=== PATIENT | female | born 1965 | race Caucasian/White ===

== ENCOUNTER 2018-06-27 05:20 | Inpatient (IN) | payer OTHER ==
[2018-06-27] MEDS ORDERED: Acetaminophen 500 MG Tab PO ONE (05:30)
[2018-06-27] MEDS ORDERED: Gabapentin 300 MG Cap PO ONE (05:40)
[2018-06-27] MEDS ORDERED: Celecoxib 200 MG Cap PO ONE (05:40)
[2018-06-27] MEDS ORDERED: Scopolamine 1.5 MG Transdermal Patch TOP SCH (05:40)
[2018-06-27] MEDS ORDERED: Dextrose 5%-Lactated Ringers 1,000 ML IV SCH (05:59)
[2018-06-27] MEDS ORDERED: Meropenem 500 MG SDV ONE (06:33)
[2018-06-27] MEDS ORDERED: cefOXitin 2 GM in Sodium Chloride 0.9% 50 ML IV ONE (07:00)
[2018-06-27] MEDS ORDERED: Ondansetron 4 MG/2 ML SDV ONE (07:05)
[2018-06-27] MEDS ORDERED: Neostigmine Methylsulfate 1 MG/ML 5 ML Syringe ONE (07:05)
[2018-06-27] MEDS ORDERED: Glycopyrrolate 0.2 MG/ML 5 ML MDV ONE (07:05)
[2018-06-27] MEDS ORDERED: Succinylcholine 200 MG/10 ML MDV ONE (07:05)
[2018-06-27] MEDS ORDERED: Propofol 200 MG/20 ML SDV ONE (07:05)
[2018-06-27] MEDS ORDERED: Dexamethasone 4 MG/ML SDV ONE (07:05)
[2018-06-27] MEDS ORDERED: Rocuronium 50 MG/5 ML Vial ONE (07:05)
[2018-06-27] MEDS ORDERED: Naloxone 0.4 MG/ML SDV IVPUSH PRN (07:09)
[2018-06-27] MEDS ORDERED: Morphine PF 150 MG/30 ML PCA Syringe IV PRN (07:09)
[2018-06-27] MEDS ORDERED: Lidocaine 2% 100 MG/5 ML Syringe IVPUSH SCH (07:30)
[2018-06-27] MEDS ORDERED: Ketamine 50 MG in Sodium Chloride 0.9% 49.5 ML IV SCH (07:30)
[2018-06-27] MEDS ORDERED: Ropivacaine 50 ML, Dexamethasone 8 MG, EPINEPHrine 0.4 MG, Sodium Chloride 0.9% 27.6 ML NERVRT SCH ×4 (07:30)
[2018-06-27] MEDS ORDERED: Ketamine 500 MG/5 ML MDV IV SCH (07:30)
[2018-06-27] MEDS: Lidocaine 0.4%/D5W 2 GM/500 ML BAG IV SCH (09:50)
[2018-06-27] MEDS ORDERED: Labetalol 20 MG/4 ML Syringe IVPUSH PRN (10:32)
[2018-06-27] MEDS ORDERED: Metoclopramide 10 MG/2 ML SDV IVPUSH PRN (10:32)
[2018-06-27] MEDS ORDERED: hydrOXYzine HCl 100 MG/2 ML SDV IM PRN (10:32)
[2018-06-27] MEDS ORDERED: Ondansetron 4 MG/2 ML SDV IVPUSH PRN (10:32)
[2018-06-27] MEDS ORDERED: diphenhydrAMINE 50 MG/ML SDV IVPUSH PRN (10:32)
[2018-06-27] MEDS: Sodium Ferric Gluconate Cmplex 250 MG in Sodium Chloride 0.9% 100 ML IV SCH (11:58)
[2018-06-27] MEDS: Dextrose 5%-Lactated Ringers 1,000 ML IV SCH ×2 (12:00→22:51)
[2018-06-27] MEDS: cefOXitin 2 GM in Sodium Chloride 0.9% 50 ML IV SCH ×2 (12:03→18:19)
[2018-06-27] MEDS: Pantoprazole 40 MG Vial IVPUSH SCH (12:05)
[2018-06-27] MEDS: MVI, Adult with Vitamin K 10 ML, Thiamine 100 MG, Chromium/Copper/Mang/Selen/Zn 1 ML in... IV SCH ×4 (15:23)
[2018-06-27] MEDS: Gabapentin 250 MG/5 ML Solution ML 470 ML Bottle PO SCH ×2 (15:23→20:56)
[2018-06-27] MEDS: Acetaminophen Soln 650 MG/20.3 ML UD Cup PO SCH ×2 (15:24→21:00)
[2018-06-27] MEDS: Heparin Sodium 5,000 Units/ML Vial SUBCUT SCH (18:21)
[2018-06-28] MEDS: cefOXitin 2 GM in Sodium Chloride 0.9% 50 ML IV SCH (00:11)
[2018-06-28] MEDS ORDERED: Iohexol 647 MG/ML 50 ML SDV PO STA (02:42)
[2018-06-28] MEDS: Acetaminophen Soln 650 MG/20.3 ML UD Cup PO SCH ×4 (03:28→21:31)
--- NOTE | 2018-06-28 03:53 | CRLCR ---
Indication: Kelby-en-Y revision. Technique: Abdomen 2 view. Comparison: None. Findings: Two abdominal films are submitted for review. These show skin shirin in a vertical incision pattern as well as suture material and surgical clips within the left abdomen. Oral contrast is seen initially within the distal esophagus as well as minimal residual stomach. Second image shows contrast more distally within the small bowel. Impression: Submitted images show administered oral contrast extending into the small bowel without gross extravasation. Dictated by Alexis Maynard MD @ Jun 28 2018 3:50AM Signed by Dr. Alexis Maynard @ Jun 28 2018 3:52AM
[2018-06-28] MEDS: Heparin Sodium 5,000 Units/ML Vial SUBCUT SCH ×2 (05:32→18:01)
[2018-06-28] MEDS: Dextrose 5%-Lactated Ringers 1,000 ML IV SCH (05:41)
[2018-06-28] MEDS ORDERED: Rizatriptan 10 MG Tab.DIS PO PRN (07:41)
[2018-06-28] MEDS ORDERED: LORazepam 1 MG Tab PO PRN (07:41)
[2018-06-28] MEDS ORDERED: Dextrose 5%-Lactated Ringers 1,000 ML IV SCH (07:45)
--- NOTE | 2018-06-28 08:21 | PCM.SURGPN ---
- General Info Date of Service: 06/28/18 Date of Surgery/Procedure: 06/27/18 POD#: 1 Functional Status: Reports: Pain Controlled (on Morphine ENGINEERING ASSOCIATE with scheduled Tylenol and gabapentin in addition.), Tolerating Diet (was on ice chips and sips. ), Ambulating, Incentive Spirometry (use is 10x/ hour while awake.) - Review of Systems Systems Review Comment:: Norma Askew is a 53-year-old female who is post op day 1 from an exploratory laparotomy with closure of gastric gastric fistula, revision of gastrojejunostomy, closure of gastrostomy, and gastroscopy. Patient remained afebrile with stable vital signs. The patient's pain is well controlled on Morphine ENGINEERING ASSOCIATE. The patient had satisfactory urine output through Jaffe catheter. Tolerating diet well. All questions were answered by Dr. Reyes. - Patient Data Vitals - Most Recent: Last Vital Signs Temp 37.1 C 06/28/18 07:40 Pulse 66 06/28/18 07:40 Resp 15 06/28/18 07:40 BP 145/84 H 06/28/18 07:40 Pulse Ox 98 06/28/18 07:40 Weight - Most Recent: 100.607 kg I&O - Last 24 Hours: Intake & Output 06/27/18 06/28/18 06/28/18 22:59 06:59 14:59 Intake Total 2646 1969 500 Output Total 2550 1400 Balance 96 569 500 Med Orders - Current: Current Medications Acetaminophen (Tylenol) 650 mg PO Q6H [facility] Last Admin: 06/28/18 03:28 Dose: 650 mg Cyanocobalamin (Vitamin B12) 1,000 mcg IM ONETIME ONE Stop: 06/29/18 09:01 Diphenhydramine HCl (Benadryl) 50 mg IVPUSH Q4H PRN PRN Reason: ITCHING Fluoxetine HCl (Prozac) 60 mg PO DAILY [facility] Gabapentin (Neurontin) 300 mg PO TID [facility] Last Admin: 06/27/18 20:56 Dose: 300 mg Heparin Sodium (Porcine) (Heparin Sodium) 5,000 units SUBCUT Q12H [facility] Last Admin: 06/28/18 05:32 Dose: 5,000 units Hydroxyzine HCl (Vistaril) 100 mg IM Q4H PRN PRN Reason: pain Lidocaine HCl/Dextrose (Lidocaine 2 Gm/D5w 500 Ml) 2 gm in 500 mls @ 15 mls/hr IV .Q24H [facility] Stop: 06/28/18 14:00 Last Admin: 06/27/18 09:50 Dose: 1 mg/min, 15 mls/hr Multivitamins/Minerals 10 ml/Thiamine HCl 100 mg/ Chromium/Copper/Manganese/ Seleni/Zn 1 ml/ Dextrose/Lactated Ringer's 1,012 mls @ 150 mls/hr IV DAILY@ 1600 [facility] Last Admin: 06/27/18 15:23 Dose: 150 mls/hr Ferric Sodium Gluconate Complex 250 mg/ Sodium Chloride 120 mls @ 60 mls/hr IV Q24H [facility] Stop: 06/28/18 12:59 Last Admin: 06/27/18 11:58 Dose: 60 mls/hr Dextrose/Lactated Ringer's (Dextrose 5%-Lactated Ringers) 1,000 mls @ 80 mls/ hr IV ASDIRECTED THANH Labetalol HCl (Normodyne) 5 mg IVPUSH Q5M PRN PRN Reason: SBP over 160 OR DBP over 95 Lorazepam (Ativan) 1 mg PO DAILY PRN PRN Reason: Pain (mild 1-3) Metoclopramide HCl (Reglan) 10 mg IVPUSH Q6H PRN PRN Reason: NAUSEA NOT CONTROL BY ZOFRAN Miscellaneous Information (Remove Patch) 1 ea TRDERM ONETIME ONE Stop: 06/29/18 10:01 Morphine Sulfate (Morphine Wire Rigger 150 Mg In 30 Ml) 0 mg IV ASDIRECTED PRN; Protocol PRN Reason: Pain Last Admin: 06/27/18 09:16 Dose: 1 mg Naloxone HCl (Narcan) 0.1 mg IVPUSH Q2M PRN PRN Reason: Respiratory Distress Scopolamine Patch (Check) 1 each TOP DAILY [facility] Stop: 06/29/18 10:33 Ondansetron HCl (Zofran) 4 mg IVPUSH Q4H PRN PRN Reason: Nausea/Vomiting Last Admin: 06/27/18 11:59 Dose: 4 mg Ondansetron HCl (Zofran Odt) 4 mg PO Q4H PRN PRN Reason: Nausea/Vomiting Pantoprazole Sodium (Protonix Iv) 40 mg IVPUSH Q24H [facility] Last Admin: 06/27/18 12:05 Dose: 40 mg Rizatriptan Benzoate (Maxalt Welding Manager) 10 mg PO ASDIRECTED PRN PRN Reason: Pain Scopolamine (Transderm-Scop) 1.5 mg TOP Q72H [facility] Stop: 06/29/18 10:00 Last Admin: 06/27/18 06:07 Dose: 1.5 mg Topiramate (Topamax) 200 mg PO DAILY [facility] Discontinued Medications Acetaminophen (Tylenol Extra Strength) 1,000 mg PO ONETIME ONE Stop: 06/27/18 05:31 Last Admin: 06/27/18 06:07 Dose: 1,000 mg Celecoxib (Celebrex) 200 mg PO ONETIME ONE Stop: 06/27/18 05:41 Last Admin: 06/27/18 06:07 Dose: 200 mg Ropivacaine 50 ml/Dexamethasone 8 mg/Epinephrine HCl 0.4 mg/ Sodium Chloride 27.6 ml 0 ml NERVRT ASDIRECTED [facility] Last Admin: 06/27/18 08:07 Dose: 80 syringe Dexamethasone (Dexamethasone) Confirm Administered Dose 4 mg .ROUTE .STK-MED ONE Stop: 06/27/18 07:06 Fentanyl Citrate (Fentanyl) Confirm Administered Dose 500 mcg .ROUTE .STK-MED ONE Stop: 06/27/18 07:13 Gabapentin (Neurontin) 300 mg PO ONETIME ONE Stop: 06/27/18 05:41 Last Admin: 06/27/18 06:07 Dose: 300 mg Glycopyrrolate (Robinul) Confirm Administered Dose 1 mg .ROUTE .STK-MED ONE Stop: 06/27/18 07:06 Cefoxitin Sodium 2 gm/ Sodium (Chloride) 50 mls @ 100 mls/hr IV ONETIME ONE Stop: 06/27/18 07:29 Last Admin: 06/27/18 07:12 Dose: 100 mls/hr Dextrose/Lactated Ringer's (Dextrose 5%-Lactated Ringers) 1,000 mls @ 100 mls/ hr IV ASDIRECTED [facility] Last Admin: 06/27/18 06:09 Dose: 100 mls/hr Ketamine HCl 50 mg/ Sodium (Chloride) 50 mls @ 19.8 mls/hr IV ASDIRECTED [facility] Dextrose/Lactated Ringer's (Dextrose 5%-Lactated Ringers) 1,000 mls @ 150 mls/ hr IV ASDIRECTED [facility] Last Admin: 06/28/18 05:41 Dose: 150 mls/hr Cefoxitin Sodium 2 gm/ Sodium (Chloride) 50 mls @ 100 mls/hr IV Q6H [facility] Stop: 06/28/18 00:59 Last Admin: 06/28/18 00:11 Dose: 100 mls/hr Iohexol (Omnipaque-300) 50 ml PO .ASDIRECTED [facility] Stop: 06/28/18 02:43 Last Admin: 06/28/18 02:54 Dose: 50 ml Ketamine HCl (Ketalar) 33 mg IV ASDIRECTED [facility] Lidocaine HCl (Xylocaine 2%) 115 mg IVPUSH ASDIRECTED [facility] Meropenem (Merrem) Confirm Administered Dose 500 mg .ROUTE .STK-MED ONE Stop: 06/27/18 06:34 Last Admin: 06/27/18 08:09 Dose: 500 mg Neostigmine Methylsulfate (Neostigmine) Confirm Administered Dose 5 mg .ROUTE .STK-MED ONE Stop: 06/27/18 07:06 Ondansetron HCl (Zofran) Confirm Administered Dose 4 mg .ROUTE .STK-MED ONE Stop: 06/27/18 07:06 Propofol (Diprivan 20 Ml) Confirm Administered Dose 200 mg .ROUTE .STK-MED ONE Stop: 06/27/18 07:06 Rocuronium Howard (Zemuron) Confirm Administered Dose 50 mg .ROUTE .STK-MED ONE Stop: 06/27/18 07:06 Succinylcholine Chloride (Quelicin) Confirm Administered Dose 200 mg .ROUTE .STK -MED ONE Stop: 06/27/18 07:06 - Exam General: Alert, Oriented Neck: Supple Lungs: Clear to Auscultation, Normal Respiratory Effort Cardiovascular: Regular Rate, Regular Rhythm Extremities: No Pedal Edema Neurological: No New Focal Deficit Psy/Mental Status: Normal Affect, Normal Mood Physical Findings Comment:: Jaffe catheter output 4245 mL - Problem List Review Problem List Initiated/Reviewed/Updated: Yes - My Orders Last 24 Hours: Active Orders 24 hr Category Date Time Status Patient Status [ADT] Routine ADT 06/27/18 09:00 Active Ambulate [RC] ASDIRECTED Care 06/27/18 10:12 Active Cardiac Monitoring Discontinue [RC] Click to Edit Care 06/28/18 07:40 Active Cardiac Monitoring [RC] .As Directed Care 06/27/18 10:25 Active Communication Order [RC] ASDIRECTED Care 06/27/18 10:25 Active Dorsiflex/Plantar flex x 10 [RC] Q4HR Care 06/27/18 10:12 Active Head of Bed Elevation [RC] CONTINUOUS Care 06/27/18 10:12 Active Insert Urinary Catheter [OM.PC] Q24H Care 06/27/18 10:30 Ordered Intake and Output [RC] QSHIFT Care 06/27/18 10:12 Active May Shower [RC] ASDIRECTED Care 06/28/18 07:40 Active Notify Provider Intake and Out [RC] ASDIRECTED Care 06/27/18 10:12 Active Oxygen Therapy [RC] PRN Care 06/27/18 10:12 Active Pneumonia Education [RC] UPON Care 06/27/18 10:12 Active Pulse Oximetry [RC] CONTINUOUS Care 06/27/18 10:12 Active RT Incentive Spirometry [RC] ASDIRECTED Care 06/27/18 10:12 Active Turn, Cough, Deep Breathe [RC] Q1HWA Care 06/27/18 10:12 Active Up to Chair [RC] TIDMEALS Care 06/27/18 10:12 Active Urinary Catheter Assessment [RC] ASDIRECTED Care 06/27/18 10:12 Active Urinary Catheter Removal [RC] Per Unit Routine Care 06/28/18 07:40 Active Consult to Bariatric Services [CONS] Routine Cons 06/27/18 10:12 Active Consult to Netezza Developer [CONS] Routine Cons 06/27/18 10:12 Active Respiratory Care Assess and Treatment [CONS] Routine Cons 06/27/18 10:12 Active Respiratory Care Assess and Treatment [CONS] Routine Cons 06/27/18 10:12 Active Bariatric Diet [DIET] Diet 06/28/18 Breakfast Active Acetaminophen [Tylenol] Med 06/27/18 16:00 Active 650 mg PO Q6H Cyanocobalamin (Vitamin B12) [Vitamin B12] Med 06/29/18 09:00 Once 1,000 mcg IM ONETIME ONE Dextrose 5%-Lactated Ringers 1,000 ml Med 06/28/18 07:45 Active IV ASDIRECTED FLUoxetine [PROzac] Med 06/28/18 09:00 Active 60 mg PO DAILY Gabapentin [Neurontin] Med 06/27/18 14:00 Active 300 mg PO TID Heparin Sodium Med 06/27/18 18:00 Active 5,000 units SUBCUT Q12H LORazepam [Ativan] Med 06/28/18 07:41 Active 1 mg PO DAILY PRN Labetalol [Normodyne] Med 06/27/18 10:32 Active 5 mg IVPUSH Q5M PRN Lidocaine 0.4%/D5W [Lidocaine 2 GM/D5W 500 ML] Med 06/27/18 07:30 Active 2 gm in 500 ml IV 1 mg/min MVI, Adult with Vitamin K [Infuvite Adult] 10 ml Med 06/27/18 16:00 Active Thiamine [Vitamin B-1] 100 mg Chromium/Copper/Stanley/Selen/Zn [Multitrace-5 Concentrate ] 1 ml Dextrose 5%-Lactated Ringers 1,000 ml IV DAILY@1600 Metoclopramide [Reglan] Med 06/27/18 10:32 Active 10 mg IVPUSH Q6H PRN Non-Formulary Medication [NF Drug] Med 06/27/18 10:32 Active 1 each TOP DAILY Ondansetron [Zofran ODT] Med 06/28/18 07:40 Active 4 mg PO Q4H PRN Ondansetron [Zofran] Med 06/27/18 10:32 Active 4 mg IVPUSH Q4H PRN Pantoprazole [ProTONIX IV] Med 06/27/18 11:30 Active 40 mg IVPUSH Q24H Remove Patch Med 06/29/18 10:00 Once 1 ea TRDERM ONETIME ONE Rizatriptan [Maxalt TORTS LAW PROFESSOR] Med 06/28/18 07:41 Active 10 mg PO ASDIRECTED PRN Sodium Ferric Gluconate Cmplex [Ferrlecit IV] 250 mg Med 06/27/18 11:00 Active Sodium Chloride 0.9% [Normal Saline] 100 ml IV Q24H Topiramate [Topamax] Med 06/28/18 09:00 Active 200 mg PO DAILY diphenhydrAMINE [Benadryl] Med 06/27/18 10:32 Active 50 mg IVPUSH Q4H PRN hydrOXYzine HCl [Vistaril] Med 06/27/18 10:32 Active 100 mg IM Q4H PRN Abdominal Binder [OM.PC] Per Unit Routine Oth 06/27/18 10:12 Ordered Convert IV to Saline Lock [OM.PC] Routine Oth 06/28/18 07:40 Ordered DME for Inpatients [OM.PC] Per Unit Routine Oth 06/27/18 10:12 Ordered Oral Care [OM.PC] BID Oth 06/27/18 10:15 Ordered Oral Care [OM.PC] BID Oth 06/28/18 10:15 Ordered Oral Care [OM.PC] BID Oth 06/29/18 10:15 Ordered Oral Care [OM.PC] BID Oth 06/30/18 10:15 Ordered Oral Care [OM.PC] BID Oth 07/01/18 10:15 Ordered Oral Care [OM.PC] BID Oth 07/02/18 10:15 Ordered Oral Care [OM.PC] BID Oth 07/03/18 10:15 Ordered Oral Care [OM.PC] BID Oth 07/04/18 10:15 Ordered Oral Care [OM.PC] BID Oth 07/05/18 10:15 Ordered Oral Care [OM.PC] BID Oth 07/06/18 10:15 Ordered PT Screening [OM.PC] Routine Ot 06/27/18 10:12 Active Sequential Compression Device [OM.PC] Per Unit Routine Ot 06/27/18 10:12 Ordered Specialty Bed [OM.PC] Continuous Ot 06/27/18 10:12 Ordered Medication Orders Acetaminophen (Tylenol) 650 mg PO Q6H [facility] Last Admin: 06/28/18 03:28 Dose: 650 mg Admin: 06/27/18 21:00 Dose: 650 mg Admin: 06/27/18 15:24 Dose: 650 mg Cyanocobalamin (Vitamin B12) 1,000 mcg IM ONETIME ONE Stop: 06/29/18 09:01 Diphenhydramine HCl (Benadryl) 50 mg IVPUSH Q4H PRN PRN Reason: ITCHING Fluoxetine HCl (Prozac) 60 mg PO DAILY [facility] Gabapentin (Neurontin) 300 mg PO TID [facility] Last Admin: 06/27/18 20:56 Dose: 300 mg Admin: 06/27/18 15:23 Dose: 300 mg Heparin Sodium (Porcine) (Heparin Sodium) 5,000 units SUBCUT Q12H [facility] Last Admin: 06/28/18 05:32 Dose: 5,000 units Admin: 06/27/18 18:21 Dose: 5,000 units Hydroxyzine HCl (Vistaril) 100 mg IM Q4H PRN PRN Reason: pain Lidocaine HCl/Dextrose (Lidocaine 2 Gm/D5w 500 Ml) 2 gm in 500 mls @ 15 mls/hr IV .Q24H [facility] Stop: 06/28/18 14:00 Last Admin: 06/27/18 09:50 Dose: 1 mg/min, 15 mls/hr Multivitamins/Minerals 10 ml/Thiamine HCl 100 mg/ Chromium/Copper/Manganese/ Seleni/Zn 1 ml/ Dextrose/Lactated Ringer's 1,012 mls @ 150 mls/hr IV DAILY@ 1600 [facility] Last Admin: 06/27/18 15:23 Dose: 150 mls/hr Ferric Sodium Gluconate Complex 250 mg/ Sodium Chloride 120 mls @ 60 mls/hr IV Q24H [facility] Stop: 06/28/18 12:59 Last Admin: 06/27/18 11:58 Dose: 60 mls/hr Dextrose/Lactated Ringer's (Dextrose 5%-Lactated Ringers) 1,000 mls @ 80 mls/ hr IV ASDIRECTED [facility] Labetalol HCl (Normodyne) 5 mg IVPUSH Q5M PRN PRN Reason: SBP over 160 OR DBP over 95 Lorazepam (Ativan) 1 mg PO DAILY PRN PRN Reason: Pain (mild 1-3) Metoclopramide HCl (Reglan) 10 mg IVPUSH Q6H PRN PRN Reason: NAUSEA NOT CONTROL BY ZOFRAN Miscellaneous Information (Remove Patch) 1 ea TRDERM ONETIME ONE Stop: 06/29/18 10:01 Morphine Sulfate (Morphine Wire Rigger 150 Mg In 30 Ml) 0 mg IV ASDIRECTED PRN; Protocol PRN Reason: Pain Last Admin: 06/27/18 09:16 Dose: 1 mg Naloxone HCl (Narcan) 0.1 mg IVPUSH Q2M PRN PRN Reason: Respiratory Distress Scopolamine Patch (Check) 1 each TOP DAILY [facility] Stop: 06/29/18 10:33 Ondansetron HCl (Zofran) 4 mg IVPUSH Q4H PRN PRN Reason: Nausea/Vomiting Last Admin: 06/27/18 11:59 Dose: 4 mg Ondansetron HCl (Zofran Odt) 4 mg PO Q4H PRN PRN Reason: Nausea/Vomiting Pantoprazole Sodium (Protonix Iv) 40 mg IVPUSH Q24H [facility] Last Admin: 06/27/18 12:05 Dose: 40 mg Rizatriptan Benzoate (Maxalt Welding Manager) 10 mg PO ASDIRECTED PRN PRN Reason: Pain Scopolamine (Transderm-Scop) 1.5 mg TOP Q72H [facility] Stop: 06/29/18 10:00 Last Admin: 06/27/18 06:07 Dose: 1.5 mg Topiramate (Topamax) 200 mg PO DAILY [facility] - Assessment Assessment (Free Text/Narrative):: Pre-Op Diagnosis: G-G fistula Post-Op Diagnosis: G-G fistula Procedure: Exploratory laparotomy with closure of gastric gastric fistula, revision of gastrojejunostomy, closure of gastrostomy, and gastroscopy. Date of Procedure: 06/27/18 Surgeon: Alexis Reyes MD - Plan Plan (Free Text/Narrative):: 1. Discontinue cardiac monitoring. 2. May shower as directed. 3. Discontinue urinary catheter. 4. Transition to Step II diet. 5. Dextrose 5%-LR 1,000 mL IV as directed. 6. Fluoxetine 60 mg PO daily. 7. Lorazepam 1 mg PO daily PRN for pain. 8. Ondansetron 4 mg PO every 4 hours PRN for nausea/vomiting. 9. Rizatriptan 10 mg PO as directed PRN for pain. 10. Topiramate 200 mg PO daily. 11. Convert IV to saline lock. 12. Home medications were reconciled.
[2018-06-28] MEDS: Lidocaine 0.4%/D5W 2 GM/500 ML BAG IV SCH (08:43)
[2018-06-28] MEDS: Gabapentin 250 MG/5 ML Solution ML 470 ML Bottle PO SCH ×3 (08:55→21:31)
[2018-06-28] MEDS: SCOPOLAMINE PATCH CHECK TOP SCH (08:56)
[2018-06-28] MEDS: FLUoxetine 20 MG Cap PO SCH (08:57)
[2018-06-28] MEDS: Topiramate 100 MG Tab PO SCH (08:58)
[2018-06-28] MEDS: Pantoprazole 40 MG Vial IVPUSH SCH (10:44)
[2018-06-28] MEDS: Sodium Ferric Gluconate Cmplex 250 MG in Sodium Chloride 0.9% 100 ML IV SCH (11:04)
[2018-06-28] MEDS: MVI, Adult with Vitamin K 10 ML, Thiamine 100 MG, Chromium/Copper/Mang/Selen/Zn 1 ML in... IV SCH ×4 (15:59)
[2018-06-28] MEDS: HYDROmorphone 2 MG Tab PO PRN (20:19)
[2018-06-29] MEDS: HYDROmorphone 2 MG Tab PO PRN ×4 (00:15→21:30)
[2018-06-29] MEDS: Acetaminophen Soln 650 MG/20.3 ML UD Cup PO SCH ×4 (04:26→21:30)
[2018-06-29] MEDS: Heparin Sodium 5,000 Units/ML Vial SUBCUT SCH ×2 (06:10→17:46)
[2018-06-29] MEDS ORDERED: Magnesium Hydroxide 400 MG/5 ML Susp 30 ML Cup PO ONE (08:30)
[2018-06-29] MEDS ORDERED: Cyanocobalamin (Vitamin B12) 1,000 MCG/ML SDV IM ONE (09:00)
[2018-06-29] MEDS: Gabapentin 250 MG/5 ML Solution ML 470 ML Bottle PO SCH ×3 (09:17→21:41)
[2018-06-29] MEDS: FLUoxetine 20 MG Cap PO SCH (09:17)
[2018-06-29] MEDS: Topiramate 100 MG Tab PO SCH (09:18)
[2018-06-29] MEDS: SCOPOLAMINE PATCH CHECK TOP SCH (09:18)
[2018-06-29] MEDS ORDERED: Bisacodyl 5 MG Tab PO ONE (09:30)
--- NOTE | 2018-06-29 11:50 | PN ---
DATE OF SERVICE: 06/29/2018 SUBJECTIVE: Norma's pain is controlled. She is receiving oral Dilaudid. She has been up ambulating. Vital signs have been stable. Oral intake was 20/30 on a step-2 gastric bypass diet and urine output was 1850. Denies any associated signs or symptoms. Has not had a bowel movement yet. OBJECTIVE: GENERAL: Norma Askew is a 53-year-old female. She is alert, orientated, and talkative. VITAL SIGNS: TPR 97.1, 63, 18, and blood pressure is 133/76. HEENT: Negative. NECK: Supple. HEART: Regular rate and rhythm. LUNGS: Clear. ABDOMEN: Dressings dry and intact. She has an Aquacel dressing on. EXTREMITIES: Without peripheral edema. ASSESSMENT: Exploratory laparotomy with closure of gastric fistula, revision of gastrojejunostomy, closure of gastrostomy and gastroscopy. Date of surgery 06/27/2018. Surgeon, Alexis Reyes MD. PLAN: 1. DC Aquacel dressing. 2. Milk of magnesia 30 mL now. 3. Give Dulcolax tab 1 hour after milk of mag. 4. Continue to work on good pulmonary function. 5. We will evaluate p.r.n. or in a.m. 6. Plan to discharge in a.m. Norma Rothman PA-C /[id number]
--- NOTE | 2018-06-29 11:56 | OR ---
DATE OF PROCEDURE: 06/27/2018 PREOPERATIVE DIAGNOSIS: Gastrogastric fistula. POSTOPERATIVE DIAGNOSES: 1. Gastrogastric fistula. 2. Status post previous gastrostomy. OPERATIVE PROCEDURES: 1. Upper gastrointestinal endoscopy with placement of a wire across the gastrogastric fistula and subsequent placement of a dilator over the wire (71779). 2. Exploratory laparotomy with lysis of adhesions and: a. Takedown of gastrostomy (49128). b. Closure of a gastrogastric fistula (02056). ANESTHESIA: General. ASSISTANTS: Norma Rothman PA-C, and MICHELE Dc. INDICATIONS FOR PROCEDURE: This is a 53-year-old female presenting with quite severe ongoing upper abdominal pain and heartburn related to a gastrogastric fistula. This is likely related to a previous ulceration in that area causing a perforation between 2 portions of the stomach, and the plan was to proceed with a closure of that. We will proceed with an initial upper endoscopy with wire placement, followed by a dilator across the fistula, so as to help its identification intraoperatively. Potential risks, including bleeding, infection, and leaks from various GI tracts and staple lines, were reviewed, and the patient wished to proceed. DETAILS OF PROCEDURE: The patient was taken to the operating room and placed in a supine position. After general endotracheal anesthesia was induced, the upper GI endoscope was passed orally through the length of the esophagus and into the proximal stomach. The fistula site could be identified at that point, and the guidewire was passed from there into the remainder of the stomach. The gastroscope was then withdrawn, leaving the wire in place, and a 30-Rwandan Savary dilator was then positioned over the wire to help identify the fistula site intraoperatively. A Jaffe catheter was inserted and the abdomen prepped and draped. An upper midline incision was made and carried down through the full-thickness abdominal wall. Upon entering the peritoneal cavity, the patient was noted to have a previous gastrostomy present. This was taken down by means of cautery dissection and then stapled. At that point, dissection in the area of the proximal stomach was accomplished, and the area of fistula could be identified. There was some chronic inflammation and scarring in this area. Once the fistula was then encircled, the portion of the stomach between the 2 parts was excised in the process of closing off the fistula, to provide some distance between the 2 sites and to prevent recurrent fistula formation. That portion of the stomach and a tiny bit of adjacent small bowel were then delivered from the field. At this point, no further problems were noted. The area was reinforced with some fibrin sealant and omentum, and a single Jeffy-Huang drain was then placed through a stab wound in the left subcostal area and positioned adjacent to the closure site. The midline fascia was then approximated with a #2 Vicryl stitch and the subcutaneous tissue with 2 layers of 3- 0 and 4-0 Vicryl stitches deep and shirin for the skin. The patient was taken to the recovery room in satisfactory condition. Of note, the wire and dilator had been removed prior to stapling across the area of the fistula. Physician practice assistant, Norma Rothman, played an essential role in assisting in this case, helping to position the patient and retract structures as needed, as well as suturing and stapling when indicated. Her presence improved the patient's safety and decreased the operative time. Alexis Reyes MD /[id number]
[2018-06-29] MEDS: Ondansetron 4 MG Tab.DIS PO PRN ×2 (11:57→16:10)
[2018-06-29] MEDS: Pantoprazole 40 MG Delayed-Release Granules 1 Packet PO SCH (13:46)
[2018-06-30] MEDS: HYDROmorphone 2 MG Tab PO PRN ×3 (02:54→11:51)
[2018-06-30] MEDS: Acetaminophen Soln 650 MG/20.3 ML UD Cup PO SCH ×2 (03:01→09:25)
[2018-06-30] MEDS: Heparin Sodium 5,000 Units/ML Vial SUBCUT SCH (05:53)
[2018-06-30] MEDS: FLUoxetine 20 MG Cap PO SCH (09:24)
[2018-06-30] MEDS: Topiramate 100 MG Tab PO SCH (09:25)
[2018-06-30] MEDS: Gabapentin 250 MG/5 ML Solution ML 470 ML Bottle PO SCH (09:27)
--- NOTE | 2018-06-30 10:44 | DISCH ---
ADMISSION DIAGNOSES: 1. 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 2. Unspecified surgical malabsorption. 3. B12 deficiency. 4. Low ferritin. 5. Anxiety state. 6. Bipolar 1 disorder. 7. Episodic mood disorder. 8. Migraine headaches. 9. Psychophysiological insomnia. DISCHARGE DIAGNOSES: 1. Upper gastrointestinal endoscopy with placement of a wire across the gastrogastric fistula and subsequent placement of a dilator over the wire. 2. Exploratory laparotomy with lysis of adhesion and: a. Takedown of gastrostomy. b. Closure of gastrogastric fistula. 3. Gastrogastric fistula status post previous gastrostomy. Date of surgery, 06/27/2018. Surgeon, Alexis Reyes MD. 4. Low ferritin. HISTORY: Norma Askew is a 53-year-old female presenting with severe ongoing upper abdominal pain and heartburn related to a gastrogastric fistula. After preoperative evaluation and discussion of possible risks and possible complications, she wished to proceed with surgical procedure. HOSPITAL COURSE: Norma had her surgery on 06/27/2018. She had no operative complications. On postoperative day #1, her upper GI was normal. She was started on a step-2 with no cereal gastric bypass diet. She received ferrous gluconate 250 mg IV x2 doses, one on postoperative day and the other one on postoperative day #1. On postop day #1, she was changed to oral pain medication and she was up ambulating. She did have a fall and has bruising in her right foot. No other injury. On postoperative day #2, she was given bowel stimulation. Also, she started having bowel movements. Oral intake was adequate. Pain controlled. Activity good. She received adequate dietary instruction and she was able to be discharged to home on 06/30/2018. PHYSICAL EXAMINATION: GENERAL: Norma is a 53-year-old female. VITAL SIGNS: Height is 5 feet 8.9 inches. Weight is 221 pounds. TPR is 97.1, 59, 16, blood pressure 121/72. HEENT: Negative. NECK: Supple. HEART: Regular rate and rhythm. LUNGS: Clear. ABDOMEN: Stapled incision looks good. Minimal tenderness is noted in abdomen. Abdominal binder has been on. EXTREMITIES: Without peripheral edema. She has some slight bruising in her right foot. Very minimal swelling and abrasion on the top of her foot, superficial. NEUROLOGIC: Intact. PSYCHIATRIC: Mood and affect appropriate. DISPOSITION: Discharge to home. CONDITION: Stable and improving. FOLLOWUP APPOINTMENT: Norma Rothman PA-C, on 07/04/2018 at 11:30 a.m., appointment to be at [place], [place]. HOME MEDICATIONS: 1. Dilaudid 2 mg oral q.6 hours p.r.n. pain, #28. 2. Tylenol 650 mg oral q.6 hours. She can either take the liquid or the chewable. 3. Zofran ODT 4 mg every 6 hours p.r.n. nausea. To resume home medications of: 1. Ativan 1 mg oral daily. 2. Omeprazole 20 mg oral daily. 3. Maxalt 10 mg oral as directed p.r.n. headache. 4. Carafate 1 g oral 4 times a day. 5. Topiramate 200 mg oral daily. DIET: Step-2 gastric bypass diet for 2 weeks until July 10, 2018. OTHER ACTIVITY: No lifting greater than 10 pounds for 6 weeks. Shower/ bathing, may shower. No tub bathing or swimming for 6 weeks. DISCHARGE INSTRUCTIONS: Notify provider if any fever, increased pain, swelling, redness, drainage, nausea, or vomiting. Keep site clean and dry. Wear abdominal binder for 6 weeks and then as tolerated. Use incentive spirometer 10 times every hour while awake for 1 week.
[2018-06-30] MEDS: Pantoprazole 40 MG Delayed-Release Granules 1 Packet PO SCH (11:51)
== END 2018-06-30 13:15 | disposition home or self-care (01) | DRG 327 ==
LOC: JP.SDSSCHI 05:20 → JP.SDS 05:20 → JP.MS 09:00 → EDSTATUS 12:30
PROVIDERS: ADMIT Surgery; ATTEND Surgery
PROC: 0D768ZZ Dilation of Stomach, Via Natural or Artificial Opening Endoscopic (ICD-10-PCS; principal; 2018-06-27)
PROC: 0DB60ZZ Excision of Stomach, Open Approach (ICD-10-PCS; principal; 2018-06-27)
PROC: 0DBA0ZZ Excision of Jejunum, Open Approach (ICD-10-PCS; principal; 2018-06-27)
DX: K31.6 Fistula of stomach and duodenum (principal); K91.2 Postsurgical malabsorption, not elsewhere classified; E53.8 Deficiency of other specified B group vitamins; F41.9 Anxiety disorder, unspecified; F31.9 Bipolar disorder, unspecified; F39 Unspecified mood [affective] disorder; G43.909 Migraine, unspecified, not intractable, without status migrainosus; F51.04 Psychophysiologic insomnia; K21.9 Gastro-esophageal reflux disease without esophagitis; M99.01 Segmental and somatic dysfunction of cervical region; M99.02 Segmental and somatic dysfunction of thoracic region; F17.210 Nicotine dependence, cigarettes, uncomplicated; K29.50 Unspecified chronic gastritis without bleeding; Z98.84 Bariatric surgery status; Z90.710 Acquired absence of both cervix and uterus; Z79.899 Other long term (current) drug therapy; Z88.5 Allergy status to narcotic agent
CPT/HCPCS: 36415; 74240; 82962; 86850; 86900; 86901; 88305; 88307; A9270-GY; C9113; J0171; J0330; J0694; J1100; J1644; J2001; J2185; J2270; J2405; J2704; J2710; J2795; J2916; J3010; J3411; J3420; J3490; J7030; J7042; J7050; Q9967